=== PATIENT | male | born 1965 | race Two or more races ===

== ENCOUNTER → 2020-05-26 | Outpatient (CLI) | payer OTHER | END | disposition home or self-care (01) | LOC: RX STUDY 10:15 | PROVIDERS: ATTEND Urology | DX: R31.0 Gross hematuria (principal); C61 Malignant neoplasm of prostate ==

== ENCOUNTER 2020-06-03 10:45 | Outpatient (CLI) | payer OTHER | END 2020-06-03 11:05 | disposition home or self-care (01) | LOC: RX STUDY 10:45 | PROVIDERS: ATTEND Urology | DX: R31.0 Gross hematuria (principal) ==